=== PATIENT | male | born 1995 | race Caucasian/White ===

== ENCOUNTER 2021-08-24 08:01 | Emergency (ER) | payer SELFPAY ==
[~2021-08-24] VITALS: Ht 172.7 cm; Wt 81.6 kg
[2021-08-24 08:12] VITALS: BP 110/69
--- NOTE | 2021-08-24 08:12 | NUR ---
SENT TO ER BED 3. BIBS C/O BILATERAL HAND REDNESS, SWELLING X 2 DAYS. VITALS ARE WITHIN NORMAL LIMITS. BREATHING IS EVEN AND UNLABORED.
--- NOTE | 2021-08-24 08:20 | NUR ---
DR HENSLEY AT BEDSIDE
[2021-08-24] MEDS ORDERED: HYDR28.469 TP (08:47)
[2021-08-24] MEDS ORDERED: diphenhydrAMINE HCL 25 MG CAPSULE ONE (08:58)
[2021-08-24] MEDS ORDERED: DIPHENHYDRAMINE HCL 12.5 MG/5 ML UDC PO ONE (09:00)
--- NOTE | 2021-08-24 09:01 | NUR ---
Patient discharged to home in stable condition. Written and verbal after care instructions given. Patient verbalizes understanding of instruction.
== END 2021-08-24 09:02 | disposition home or self-care (01) ==
LOC: ER 08:05
DX: R21 Rash and other nonspecific skin eruption (principal); L50.9 Urticaria, unspecified
CPT/HCPCS: 99283; Q0163 ×2